=== PATIENT | male | born 1995 | race African-American/Black ===

== ENCOUNTER 2022-02-01 15:10 | Emergency (ER) | payer MEDICAID ==
[~2022-02-01] VITALS: Ht 188 cm; Wt 113.2 kg
[2022-02-01] MEDS ORDERED: ELVI1TAB3 PO (16:14)
[2022-02-01] MEDS ORDERED: CefTRIAXone SODIUM 1 GM/VIAL IM ONE (16:45)
[2022-02-01] MEDS ORDERED: PENICILLIN G BENZATHINE LA 2,400,000 UNITS/4 ML SYRINGE IM ONE (16:45)
[2022-02-01] MEDS ORDERED: LIDOCAINE/PF 1% 2 ML VIAL IM ONE (16:45)
[2022-02-01] MEDS ORDERED: AZITHROMYCIN 500 MG TABLET PO ONE (16:45)
[2022-02-01 17:01] VITALS: BP 117/53
== END 2022-02-01 17:22 | disposition home or self-care (01) ==
LOC: EMS 15:10
DX: K62.89 Other specified diseases of anus and rectum (principal); F12.90 Cannabis use, unspecified, uncomplicated; F15.90 Other stimulant use, unspecified, uncomplicated
CPT/HCPCS: 87491; 87591; 96372; 99284; J0561; J0696; J3490; Q9967

== ENCOUNTER 2022-02-03 01:35 | Inpatient (IN) | payer MEDICAID ==
[~2022-02-03] VITALS: Ht 188 cm; Wt 114.0 kg
[~2022-02-03 01:35] MED LIST: ELVI1TAB3 PO
[2022-02-03 08:45] LABS: COVID AG,FIA SOURCE NASOPHARYNGEAL
[2022-02-03] MEDS ORDERED: LORazepam 2 MG TABLET PO PRN (09:00)
[2022-02-03] MEDS ORDERED: ZOLPIDEM TARTRATE 10 MG TABLET PO PRN (09:00)
[2022-02-03] MEDS ORDERED: HALOPERIDOL 5 MG TABLET PO PRN (09:00)
[2022-02-03 10:30] VITALS: BP 115/68
[2022-02-03] MEDS ORDERED: PNEUMOCOCCAL VACCINE POLYVALENT 0.5 ML VIAL [PPSV23] IM. ONE (11:45)
[2022-02-03 16:13] VITALS: BP 107/64
[2022-02-04 05:55] VITALS: BP 106/52
[2022-02-04 08:18] VITALS: BP 109/64
[2022-02-04] MEDS ORDERED: MAG HYDROX/AL HYDROX/SIMETH ES 30 ML SUSPENSION UDCUP PO PRN (09:45)
[2022-02-04] MEDS ORDERED: NICOTINE 14 MG/24 HOUR PATCH TD PRN (09:45)
[2022-02-04] MEDS ORDERED: LOPERAMIDE HCL 2 MG CAPSULE PO PRN (09:45)
[2022-02-04] MEDS ORDERED: MAGNESIUM HYDROXIDE SUSPENSION 30 ML UDCUP PO PRN (09:45)
[2022-02-04] MEDS ORDERED: DOCUSATE SODIUM 100 MG CAPSULE PO PRN (09:45)
[2022-02-04] MEDS ORDERED: ALBUTEROL SULFATE HFA 90 MCG/PUFF 8 GM INHALER IH PRN (09:45)
[2022-02-04] MEDS ORDERED: IBUPROFEN 400 MG TABLET PO PRN (09:45)
[2022-02-04] MEDS ORDERED: CloNIDine HCL 0.1 MG TABLET PO PRN (09:45)
[2022-02-04] MEDS ORDERED: PETROLATUM,WHITE 28 GM JELLY TP PRN (09:45)
[2022-02-04] MEDS ORDERED: GuaiFENesin/D-METHORPHAN [SUGAR-FREE] 200-20MG/10 ML SYRUP UDCUP PO PRN (09:45)
[2022-02-04] MEDS ORDERED: ACETAMINOPHEN 325 MG TABLET PO PRN (09:45)
[2022-02-04] MEDS ORDERED: ONDANSETRON HCL 4 MG TABLET PO PRN (09:45)
[2022-02-04] MEDS ORDERED: ELVITEG/COB/EMTRI/TENOF ALAFEN 150-150-200-10MG TABLET PO SCH (17:00)
[2022-02-04 20:10] VITALS: BP 118/68
[2022-02-05 00:55] VITALS: BP 115/69
[2022-02-05 08:44] VITALS: BP 131/89
[2022-02-05] MEDS ORDERED: MULTIVITAMINS WITH MINERALS, THERAPEUTIC TABLET PO SCH (09:00)
[2022-02-05] MEDS ORDERED: ELVITEG/COB/EMTRI/TENOF ALAFEN 150-150-200-10MG TABLET PO SCH (17:00)
== END 2022-02-05 12:30 | disposition home or self-care (01) | DRG 750 ==
LOC: EMS 01:36 → B2S 09:13
PROVIDERS: ADMIT Psychiatry & Neurology Child & Adolescent Psychiatry; ATTEND Psychiatry & Neurology Child & Adolescent Psychiatry
DX: F20.9 Schizophrenia, unspecified (principal); Z59.00 Homelessness unspecified; E66.9 Obesity, unspecified; F17.210 Nicotine dependence, cigarettes, uncomplicated; F99 Mental disorder, not otherwise specified; Z68.32 Body mass index [BMI] 32.0-32.9, adult; Z20.822 Contact with and (suspected) exposure to COVID-19
CPT/HCPCS: 99285; Q9967